=== PATIENT | female | born 1940 | race Caucasian/White ===

== ENCOUNTER 2021-03-24 11:25 | Outpatient (CLI) | payer MEDICARE, OTHER | END 2021-03-24 11:26 | disposition home or self-care (01) | LOC: TBSIIMAG 11:25 → SCSMRI 11:26 | PROVIDERS: ATTEND Neurological Surgery | DX: M47.816 Spondylosis without myelopathy or radiculopathy, lumbar region (principal); M51.36 Other intervertebral disc degeneration, lumbar region | CPT/HCPCS: 72100; 72148 ==

== ENCOUNTER 2022-12-06 14:19 | Outpatient (CLI) | payer MEDICARE, OTHER | END 2022-12-06 14:20 | disposition home or self-care (01) | LOC: BICCT 14:19 | PROVIDERS: ATTEND Family Medicine | DX: R10.9 Unspecified abdominal pain (principal); N28.1 Cyst of kidney, acquired; K86.2 Cyst of pancreas | CPT/HCPCS: 74177; 82565 ==

== ENCOUNTER 2022-12-20 13:50 | Outpatient (CLI) | payer MEDICARE, OTHER | END 2022-12-20 13:51 | disposition home or self-care (01) | LOC: BICMAMMO 13:50 | PROVIDERS: ATTEND Family Medicine | DX: R92.1 Mammographic calcification found on diagnostic imaging of breast (principal); N63.21 Unspecified lump in the left breast, upper outer quadrant; Z85.3 Personal history of malignant neoplasm of breast | CPT/HCPCS: 76642; 77066; G0279 ==

== ENCOUNTER 2023-01-09 12:14 | Outpatient (CLI) | payer MEDICARE, OTHER | END 2023-01-09 12:15 | disposition home or self-care (01) | LOC: BICULT 12:14 | PROVIDERS: ATTEND Family Medicine | DX: N63.21 Unspecified lump in the left breast, upper outer quadrant (principal); Z85.3 Personal history of malignant neoplasm of breast | CPT/HCPCS: 19083; 19084; 88305; 88341; 88342 ==

== ENCOUNTER 2023-01-23 07:34 | Outpatient (CLI) | payer MEDICARE, OTHER | END 2023-01-23 07:35 | disposition home or self-care (01) | LOC: SCSMRI 07:34 | PROVIDERS: ATTEND Internal Medicine Hematology & Oncology | DX: K86.2 Cyst of pancreas (principal); C50.812 Malignant neoplasm of overlapping sites of left female breast | CPT/HCPCS: 74183; 82565 ==

== ENCOUNTER 2023-02-10 11:01 | Outpatient (CLI) | payer MEDICARE, OTHER ==
[2023-02-10 13:33] LABS: #Basophils 0.1 10x3/uL (0.0-0.2); #Eosinphils 0.1 10x3/uL (0.0-0.5); #Monocytes 0.9 10x3/uL (0.0-1.1); #Neutrophils 3.9 10x3/uL (1.5-8.4); %Basophils 0.7 % (0.0-2.0); %Eosinophils 0.9 % (0.0-6.0); %Monocytes 12.6 % (0.0-10.0); %Neutrophils 56.5 % (40.0-75.0); Hematocrit 41.6 % (34.9-44.5); Hemoglobin 13.5 g/dL (12.0-15.5); Mean Corpuscular HGB CONC 32.5 g/dL (32.0-36.0); Mean Corpuscular Hemoglobin 32.3 pg (27.0-33.0); Mean Corpuscular Volume 99.5 fl (81.6-98.3); Mean Platelet Volume 10.8 fl (7.4-10.4); Platelet Count 240 10x3/uL (150-450); RBC Distribution Width 12.9 % (11.5-14.5); Red Blood Cell (RBC) Count 4.18 10x6/uL (3.90-5.03)
[2023-02-10 13:47] LABS: Anion Gap 14 mmol/L (10-20); BUN (Urea Nitrogen) 29 mg/dL (9.8-20.1); Calc. Creatinine Clearance 0 mL/min (70-130); Calcium 9.2 mg/dL (7.8-10.44); Carbon Dioxide 23 mmol/L (23-31); Chloride 106 mmol/L (98-107); Estimated GFR 50; Glucose 81 mg/dL (83-110); Sodium 139 mmol/L (136-145)
== END 2023-02-10 11:02 | disposition home or self-care (01) ==
LOC: LABBT 11:01
PROVIDERS: ATTEND Specialist
DX: Z01.818 Encounter for other preprocedural examination (principal); C50.912 Malignant neoplasm of unspecified site of left female breast
CPT/HCPCS: 71046; 80048; 85025; 93005; 93010

== ENCOUNTER 2023-11-29 14:11 | Outpatient (CLI) | payer MEDICARE, OTHER | END 2023-11-29 14:12 | disposition home or self-care (01) | LOC: BICMAMMO 14:11 | PROVIDERS: ATTEND Internal Medicine Hematology & Oncology | DX: M85.851 Other specified disorders of bone density and structure, right thigh (principal); M85.852 Other specified disorders of bone density and structure, left thigh; C50.812 Malignant neoplasm of overlapping sites of left female breast | CPT/HCPCS: 77080 ==

== ENCOUNTER 2024-02-23 13:09 | Outpatient (CLI) | payer MEDICARE | END 2024-02-23 13:10 | disposition home or self-care (01) | LOC: BICMAMMO 13:09 | PROVIDERS: ATTEND Specialist | DX: Z08 Encounter for follow-up examination after completed treatment for malignant neoplasm (principal); Z85.3 Personal history of malignant neoplasm of breast | CPT/HCPCS: 77066; G0279 ==